=== PATIENT | female | born 1985 | race Caucasian/White ===

== ENCOUNTER 2017-12-01 13:50 | Emergency (ER) | payer MEDICAID, SELFPAY ==
[2017-12-01 13:51] VITALS: BP 160/71; PULSE 86; RESP 14; TEMP 36.5; O2SAT 98; BMI 42.9
--- NOTE | 2017-12-01 14:05 | RAD_ITS ---
STUDY: X-RAY - RIGHT HAND REASON FOR EXAM: Female, 32 years old. Pain following injury. TECHNIQUE: 3 view(s) of the hand. COMPARISON: None. FINDINGS: Normal radiocarpal articulation. Normal distal radioulnar joint. Normal visualized carpal bones. Normal carpal articulations Normal carpometacarpal articulation of the thumb. Normal second through fifth carpometacarpal joints. Nondisplaced spiral fracture through the midshaft of the fourth metacarpal. Normal metacarpophalangeal joint of the thumb. Normal interphalangeal joint of the thumb. Normal proximal and distal phalanges of the thumb. Normal metacarpophalangeal joints of the second through fifth fingers. Normal proximal and distal interphalangeal joints of the second through fifth fingers. Normal phalanges of the second through fifth fingers. Soft tissue swelling. RAD/Hand Min 3 Views IMPRESSION: Nondisplaced spiral fracture through the midportion of the fourth metacarpal. Electronically Signed: Tima Butterfield MD at 14:31 EDT Tel [phone], Service support ,
[2017-12-01] MEDS: Naproxen 500 MG Tablet PO (14:17)
--- NOTE | 2017-12-01 14:49 | ED.VISSUMM ---
- ER Visit Summary Date of Service: 12/01/17 Chief Complaint: Injury right hand History of Present Illness: The patient is a 32 F who is left-hand dominant presents with injury to right hand. She states she was reaching for crockpot. The crockpot fell and she felt a snap pop in her right hand. She localizes the pain over the fourth metacarpal bone. She denies any paresthesia, anesthesia or motor weakness. She states she is reluctant to use that hand because of pain. Physical Examination: Blood pressure is elevated 160/71. Patient does appear uncomfortable. The right hand is swollen. There is significant pain to palpation over the fourth metacarpal bone. There is pain with axial loading of the right ring finger. There is no pain to palpation of the proximal, middle or distal phalanx of the index, long, ring or long finger. There is no subungual hematoma noted. Median, radial and ulnar function intact. Test Results: Three-view x-ray of the hand was obtained which reveals a comminuted nondisplaced fracture of the fourth metacarpal. There is no angulation noted either. Emergency Department Course and Treatment: X-ray was obtained to evaluate for fracture Treatment Plan: Patient was placed in a short arm AP plaster splint for immobilization and referred to Dr. Kyaw Ro who is on-call for orthopedics. Disposition: Discharged to home with appropriate home-going instructions and outpatient orthopedic follow-up Impression: Nondisplaced fracture fourth metacarpal right hand initial encounter This note was generated with [employer] dictation software. It may contain incorrect words, spelling, and punctuation that were not noted in review of the chart prior to signing ED Disposition - Plan for ED Patient: Disposition: Home or Assisted Living Chief Complaint: Upper Extremity Injury Instructions: ED Fx Hand Closed Prescriptions: Hydrocodone Bitart/Apap 5-325 [[place] 5MG-325MG] 1 tab PO Q6H PRN PRN 3 Days #10 tab PRN Reason: Pain Referrals: Vikas Bermeo, MEHRAN-C [Primary Care Provider] - Kevan Ro MD [STAFF PHYSICIAN] - 5-7 Days
--- NOTE | 2017-12-01 14:53 | ED.DCSUM_ITS ---
- ER Visit Summary Date of Service: 12/01/17 Chief Complaint: Injury right hand History of Present Illness: The patient is a 32 F who is left-hand dominant presents with injury to right hand. She states she was reaching for crockpot. The crockpot fell and she felt a snap pop in her right hand. She localizes the pain over the fourth metacarpal bone. She denies any paresthesia, anesthesia or motor weakness. She states she is reluctant to use that hand because of pain. Physical Examination: Blood pressure is elevated 160/71. Patient does appear uncomfortable. The right hand is swollen. There is significant pain to palpation over the fourth metacarpal bone. There is pain with axial loading of the right ring finger. There is no pain to palpation of the proximal, middle or distal phalanx of the index, long, ring or long finger. There is no subungual hematoma noted. Median, radial and ulnar function intact. Test Results: Three-view x-ray of the hand was obtained which reveals a comminuted nondisplaced fracture of the fourth metacarpal. There is no angulation noted either. Emergency Department Course and Treatment: X-ray was obtained to evaluate for fracture Treatment Plan: Patient was placed in a short arm AP plaster splint for immobilization and referred to Dr. Kyaw Ro who is on-call for orthopedics. Disposition: Discharged to home with appropriate home-going instructions and outpatient orthopedic follow-up Impression: Nondisplaced fracture fourth metacarpal right hand initial encounter This note was generated with [employer] dictation software. It may contain incorrect words, spelling, and punctuation that were not noted in review of the chart prior to signing ED Disposition - Plan for ED Patient: Disposition: Home or Assisted Living Chief Complaint: Upper Extremity Injury Instructions: ED Fx Hand Closed Prescriptions: Hydrocodone Bitart/Apap 5-325 [[place] 5MG-325MG] 1 tab PO Q6H PRN PRN 3 Days #10 tab PRN Reason: Pain Referrals: Vikas Bermeo, MEHRAN-C [Primary Care Provider] - Kevan Ro MD [STAFF PHYSICIAN] - 5-7 Days
[2017-12-01 14:54] VITALS: BP 124/77; PULSE 77; RESP 18; O2SAT 96
== END 2017-12-01 15:17 | disposition home or self-care (01) ==
PROVIDERS: Emergency Provider Emergency Medicine; Family Provider Nurse Practitioner Family; PCP Nurse Practitioner Family
DX: S62.304A Unspecified fracture of fourth metacarpal bone, right hand, initial encounter for closed fracture (principal); E66.9 Obesity, unspecified; W20.8XXA Other cause of strike by thrown, projected or falling object, initial encounter; Y93.89 Activity, other specified; Y92.000 Kitchen of unspecified non-institutional (private) residence as the place of occurrence of the external cause; Y99.8 Other external cause status
CPT/HCPCS: 29125; 73130; 99282

== ENCOUNTER → 2020-12-18 14:36 | Outpatient (CLI) | payer BC, SELFPAY ==
--- NOTE | 2020-12-18 14:46 | RAD_ITS ---
STUDY: X-RAY - RIGHT KNEE REASON FOR EXAM: Female, 35 years old. PAIN TECHNIQUE: 4 view(s) of the knee. COMPARISON: None. FINDINGS: Normal visualized distal femur. Normal visualized proximal tibia and fibula. Normal proximal tibiofibular articulation. Normal medial femorotibial compartment. Normal lateral femorotibial compartment. Normal patellofemoral articulation. The soft tissue structures are unremarkable. RAD/Knee 4 or More Views IMPRESSION: Normal x-ray examination of the knee. Electronically Signed: Tima Butterfield MD at 15:08 EDT , Service support ,
== END ==
PROVIDERS: PCP Family Medicine; Referring Provider Family Medicine; Visit Provider Family Medicine
DX: M25.569 Pain in unspecified knee (principal)
CPT/HCPCS: 73564

== ENCOUNTER 2023-01-06 09:17 | Emergency (ER) | payer BC, SELFPAY ==
[2023-01-06 09:19] VITALS: BP 148/93; PULSE 84; RESP 14; TEMP 36.6; O2SAT 98; BMI 51.3
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
--- NOTE | 2023-01-06 10:43 | ED.RN ---
Pt. refused xray of the knee. This RN went into room to confirm that pt. did not want it-pt. immediately became defensive and stated she did not want an xray because she does not want to pay for it. Pt. is requesting and MRI and this RN told pt. she would likely not receive and MRI as this in a non-emergent issue. Pt. becoming increasingly frustrated stating I don't have insurance so I cannot get an PCP to order me and MRI. Educated pt. again this is a non-emergent issue. Notified Dr. Mueller that pt. refused x-ray and is requesting MRI.
--- NOTE | 2023-01-06 11:12 | ED.RN ---
PT WALKS OUT OF ED DEPARTMENT. NO DC INSTRUCTIONS, NO KNEE IMMOBILIZER
== END 2023-01-06 11:15 | disposition home or self-care (01) ==
PROVIDERS: Emergency Provider Emergency Medicine; PCP Family Medicine; Visit Provider Emergency Medicine
DX: S83.91XA Sprain of unspecified site of right knee, initial encounter (principal); E66.01 Morbid (severe) obesity due to excess calories; Z68.43 Body mass index [BMI] 50.0-59.9, adult; Z87.891 Personal history of nicotine dependence; W22.8XXA Striking against or struck by other objects, initial encounter
CPT/HCPCS: 99282